=== PATIENT | male | born 1945 | race African-American/Black ===

== ENCOUNTER 2017-07-03 14:35 | Inpatient (IN) | payer MEDICARE, MEDICAID ==
[~2017-07-03] VITALS: Ht 172.7 cm; Wt 73.9 kg
--- NOTE | 2017-07-03 15:21 | NUR ---
CALLED NURSING SUP. FOR MS BED
--- NOTE | 2017-07-03 15:30 | NUR ---
MS 307-1
[2017-07-03] MEDS ORDERED: HYDROCODONE/APAP 5/325MG 1 EACH TABLET PO PRN (16:00)
[2017-07-03] MEDS ORDERED: Z GUARD REMEDY 2 OZ OINT TP PRN (16:00)
[2017-07-03] MEDS ORDERED: ZOLPIDEM TARTRATE 5 MG TABLET PO PRN (16:00)
[2017-07-03] MEDS ORDERED: ACETAMINOPHEN 325 MG TABLET PO PRN (16:00)
[2017-07-03] MEDS ORDERED: MAG HYDROX/AL HYDROX/SIMETH 30 ML UDC PO PRN (16:00)
[2017-07-03] MEDS ORDERED: ONDANSETRON HCL/PF 4 MG/2 ML VIAL IVP PRN (16:00)
[2017-07-03] MEDS ORDERED: MAGNESIUM HYDROXIDE 30 ML UDC PO PRN (16:00)
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
[2017-07-03 18:00] VITALS: BP 145/81
[2017-07-03] MEDS ORDERED: DEXTROSE 50%-WATER 50 ML DISP.SYRIN IV PRN (18:30)
--- NOTE | 2017-07-03 18:30 | NUR ---
ACCU-CHECK DONE.
[2017-07-03] MEDS: BLOOD SUGAR DIAGNOSTIC 1 EACH STRIP IN SCH ×2 (18:35→22:12)
[2017-07-03] MEDS: INSULIN ASPART HUMALOG/NOVOLOG 100 UNIT/ML CARTRIDGE SQ PRN ×2 (18:38→22:16)
--- NOTE | 2017-07-03 18:40 | NUR ---
HOME MED LIST TO BE ENDORSED TO [facility]ON[facility]. RN ER DID NOT DO IT.
--- NOTE | 2017-07-03 19:30 | NUR ---
RN OPENING NOTES PATIENT IS IN BED, ALERT AND ORIENTED X4. VS STABLE. NO C/O PAIN AT THIS TIME. NO SOB NOTED. RESPIRATIONS EVEN AND UNLABORED. BED IN LOW AND LOCKED POSITION. CALL LIGHT WITHIN EASY REACH. WILL CONTINUE TO MONITOR AND ASSESS DURING THE SHIFT.
[2017-07-03 20:00] VITALS: BP_SYST 114; BP_SYST 167; BP_DIAS 58; BP_DIAS 96
[2017-07-03] MEDS ORDERED: BLOOD SUGAR DIAGNOSTIC 1 EACH STRIP IN SCH (22:00)
[2017-07-04] MEDS ORDERED: DORZ10DR13 EACHEYE (00:37)
[2017-07-04] MEDS ORDERED: BRIM5DRO3 EACHEYE (00:37)
[2017-07-04] MEDS ORDERED: FOLI1TAB16 PO (00:37)
[2017-07-04] MEDS ORDERED: CLON0.1T PO (00:37)
[2017-07-04] MEDS ORDERED: ASCO500T9 PO (00:37)
[2017-07-04] MEDS ORDERED: CALC-838 PO (00:37)
[2017-07-04] MEDS ORDERED: CHOL200026 PO (00:37)
[2017-07-04] MEDS ORDERED: LISI2.5T2 PO (00:37)
[2017-07-04] MEDS ORDERED: MULT-331 PO (00:37)
[2017-07-04] MEDS ORDERED: FERR-58 PO (00:37)
[2017-07-04] MEDS ORDERED: ACET-868 PO (00:37)
[2017-07-04] MEDS ORDERED: ATOR10TA PO (00:37)
[2017-07-04] MEDS ORDERED: TAMS-12 PO (00:37)
[2017-07-04] MEDS ORDERED: LATA2.5D7 EACHEYE (00:37)
[2017-07-04] MEDS ORDERED: INSU100V7 SQ (00:43)
[2017-07-04] MEDS: BLOOD SUGAR DIAGNOSTIC 1 EACH STRIP IN SCH ×4 (06:31→21:44)
[2017-07-04] MEDS: INSULIN ASPART HUMALOG/NOVOLOG 100 UNIT/ML CARTRIDGE SQ PRN ×4 (06:34→21:46)
[2017-07-04 06:39] LABS: BASOPHILS % (AUTO) 0.4 % (0.0-2.0); EOSINOPHILS # (AUTO) 0.1 /CMM (0.0-0.7); EOSINOPHILS % (AUTO) 1.3 % (0.0-6.0); HEMATOCRIT 39 % (39-51); HEMOGLOBIN 13.1 g/dL (13.5-17.5); LYMPHOCYTES # (AUTO) 3.8 /CMM (0.8-4.8); LYMPHOCYTES % (AUTO) 52.9 % (20.0-44.0); MEAN CORPUSCULAR HEMOGLOBIN 32 PG (26.0-33.0); MEAN CORPUSCULAR HGB CONC 34 g/dl (31.0-36.0); MEAN CORPUSCULAR VOLUME 95 fL (80-96); MONOCYTES # (AUTO) 0.6 /CMM (0.1-1.30); MONOCYTES % (AUTO) 7.8 % (2.0-12.0); NEUTROPHILS # (AUTO) 2.7 /CMM (1.8-8.9); NEUTROPHILS % (AUTO) 37.6 % (43.0-81.0); PLATELET COUNT (AUTO) 98 /CMM (150-450); RDW COEFFICIENT OF VARIATION 12.9 (11.5-15.0); RED BLOOD CELL COUNT(AUTO) 4.13 MIL/uL (4.5-6.0); WHITE BLOOD COUNT (AUTO) 7.1 K/uL (4.3-11.0)
[2017-07-04 06:54] LABS: CALCIUM, SERUM 8.8 mg/dL (8.5-10.1); CARBON DIOXIDE 27 mmol/L (21-32); CHLORIDE 108 mmol/L (98-107); CREATININE 0.9 mg/dL (0.6-1.3); GLUCOSE 158 mg/dL (74-106); MAGNESIUM 1.9 mg/dL (1.8-2.4); PHOSPHORUS 2.9 mg/dL (2.5-4.9); POTASSIUM 4.2 mmol/L (3.5-5.1); SODIUM SERUM 142 mmol/L (136-145); UREA NITROGEN, BLOOD 17 mg/dL (7-18)
--- NOTE | 2017-07-04 07:06 | NUR ---
RN CLOSING NOTES PATIENT IS IN BED, ALERT AND ORIENTED X4. VS STABLE. NO C/O PAIN AT THIS TIME. NO SOB NOTED. RESPIRATIONS EVEN AND UNLABORED. ALL NEEDS ARE MET AND MEDICATIONS GIVEN PER MD ORDER. BED IN LOW AND LOCKED POSITION. CALL LIGHT WITHIN EASY REACH. WILL ENDORSE TO RN DAY SHIFT FOR CONTINUITY OF CARE.
[2017-07-04 07:11] LABS: CHOLESTEROL 131 mg/dL (<200); HDL CHOLESTEROL 60 mg/dL (40-60); LDL 61 mg/dL (0-99); TRIGLYCERIDES 50 mg/dL (30-150)
--- NOTE | 2017-07-04 07:30 | NUR ---
RN NOTES RECEIVED PATIENT AWAKE ALERT AND VERBALLY RESPONSIVE, ABLE TO MAKE NEEDS KNOWN. RESPIRATIONS EVEN AND UNLABORED, DENIES ANY PAIN OR DISCOMFORT AT THIS TIME. NO IV ACCESS AT THIS TIME MD AWARE, SAFETY MEASURES IN PLACE, WILL CONTINUE TO MONITOR
[2017-07-04 08:00] VITALS: BP 141/77
[2017-07-04 08:58] LABS: EOSINOPHILS % (MANUAL) 6 % (0-4); LYMPHOCYTES % (MANUAL) 37 % (16-48); MONOCYTES % (MANUAL) 6 % (0-11.0); NEUTROPHILS % (MANUAL) 49 (42-76); REACTIVE LYMPHOCYTES 2 % (0-0)
[2017-07-04 16:00] VITALS: BP 132/66
--- NOTE | 2017-07-04 19:13 | NUR ---
MS RN closing notes Patient Awake, alert and verbally responsive. Respirations are even and unlabored, not in any acute distress noted. Denies any pain at this time. Safety measures in place, all needs met and rendered. Will continue to follow the plan of care and endorse to next shift for continuity of care.
--- NOTE | 2017-07-04 19:48 | NUR ---
RN MS OPENING NOTE PT RECEIVED IN NO ACUTE DISTRESS AT THIS TIME. A/O X4 AWAKE WATCHING TV WITH NO SOB NOTED AT THIS TIME. NO IV ACCESS AT THIS TIME AND MD AWARE. COMFORT AND SAFETY MEASURES TO BE ENSURED DURING THE SHIFT. WILL CONTINUE TO MONITOR FOR ANY CHANGES DURING THE SHIFT. WILL GIVE MEDICATIONS ORDERED/NEEDED.
[2017-07-04 20:00] VITALS: BP 167/96
[2017-07-05] MEDS: BLOOD SUGAR DIAGNOSTIC 1 EACH STRIP IN SCH ×4 (06:32→22:37)
[2017-07-05] MEDS: INSULIN ASPART HUMALOG/NOVOLOG 100 UNIT/ML CARTRIDGE SQ PRN ×4 (06:33→22:42)
[2017-07-05 08:00] VITALS: BP 119/66
[2017-07-05 16:00] VITALS: BP 143/98
--- NOTE | 2017-07-05 18:56 | NUR ---
MS RN CLOSING NOTES: PATIENT IN BED, ALERT ,ORIENTED. NO SOB NOTED. NO ACUTE DISTRESS NOTED. BREATHING REGULAR EVEN AND UNLABORED. BED LOWEST POSITION, LOCKED. SIDERAILS UP X2. CALL LIGHT PLACED WITHIN REACH. NEEDS ATTENDED AND MET. DUE MEDS GIVEN, NO ASE NOTED. WILL CONTINUE TO MONITOR AND ENDORSE TO INCOMING SHIFT FOR CONTINUITY OF CARE.
--- NOTE | 2017-07-05 19:23 | NUR ---
MS RN NOTES ON BED A/O X4,NO SOB,ABLE TO VERBALIZED NEEDS,NO SALINE LOCK,DENIES DISCOMFORTS,CALL LIGHT IN REACH,NEEDS ANTICIPATED.
[2017-07-05 20:00] VITALS: BP 147/77
--- NOTE | 2017-07-05 22:47 | NUR ---
MS RN NOTES ACCU-CHECK BLOOD SUGAR CHECK 242,COVERED WITH HUMULIN ASPART 4 UNITS PER MILD SLIDING SCALE.
--- NOTE | 2017-07-06 05:45 | NUR ---
MS RN NOTES ACCU-CHECK BLOOD SUGAR CHECK 196,COVERED WITH HUMULIN ASPART 3 UNITS PER MILD SLIDING SCALE.
[2017-07-06] MEDS: BLOOD SUGAR DIAGNOSTIC 1 EACH STRIP IN SCH ×2 (06:01→11:54)
[2017-07-06] MEDS: INSULIN ASPART HUMALOG/NOVOLOG 100 UNIT/ML CARTRIDGE SQ PRN ×2 (06:04→12:02)
--- NOTE | 2017-07-06 06:32 | NUR ---
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
--- NOTE | 2017-07-06 07:15 | NUR ---
RN INITIAL NOTES PATIENT RECEIVED ASLEEP IN BED, EASILY AROUSABLE, ALERT AND ORIENTED X 4, VERBALLY RESPONSIVE, WITH NO C/O PAIN, NO SYMPTOMS OF ACUTE DISTRESS. PLACED CALL LIGHT WITHIN EASY REACH. WILL CONTINUE TO MONITOR.
[2017-07-06 08:00] VITALS: BP 149/78
--- NOTE | 2017-07-06 10:50 | NUR ---
D/C ORDER RECEIVED NEW ORDER FROM DR. ANGIE CAR TO DISCHARGE PATIENT BACK TO SNF AND TO CONTINUE ALL HOME MEDICATION. ALL ORDERS NOTED AND CARRIED OUT. PATIENT MADE AWARE AND AGREES WITH PLAN OF CARE.
--- NOTE | 2017-07-06 11:19 | NUR ---
D/C INSTRUCTIONS PATIENT UP IN BED, AWAKE, ALERT AND ORIENTED X 4, VERBALLY RESPONSIVE, NOTED WITH NO SOB, BREATHING EVEN AND UNLABORED, WITH NO C/O PAIN, NO SIGNS AND SYMPTOMS OF ACUTE DISTRESS AT THIS TIME. DISCHARGE INSTRUCTIONS GIVEN TO PATIENT AND PT VERBALIZED UNDERSTANDING. INVENTORY DONE AND ALL BELONGINGS COMPLETE. PER PATIENT, HIS DAUGHTER BEKAH BROUGHT HOME HIS CLOTHING. 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 ALL PATIENT'S NEEDS ATTENDED TO. CALL LIGHT PLACED WITHIN EASY REACH. WILL CONTINUE TO MONITOR.
--- NOTE | 2017-07-06 12:10 | NUR ---
REPORT GIVEN CALLED [facility] TO GIVE REPORT, SPOKE TO MARIANO DAILEY. INFORMED ASIM PATIENT WILL BE PICKED UP AT 2PM.
--- NOTE | 2017-07-06 14:30 | NUR ---
RN NOTE PATIENT UP IN BED, ALERT AND ORIENTED X 3, NO SOB, BREATHING EVEN AND UNLABORED, NO C/O PAIN AND NO S/S OF ACUTE DISTRESS, WITH STABLE VITAL SIGNS. PICKED UP BY TRANSPORTATION PERSONNEL, LEFT FACILITY VIA GURNEY SAFELY WITH ALL BELONGINGS COMPLETE.
== END 2017-07-06 14:30 | DRG 917 ==
LOC: ER 14:37 → MED 16:41
DX: T59.811A Toxic effect of smoke, accidental (unintentional), initial encounter (principal); J96.01 Acute respiratory failure with hypoxia; F03.90 Unspecified dementia, unspecified severity, without behavioral disturbance, psychotic disturbance, mood disturbance, and anxiety; J70.5 Respiratory conditions due to smoke inhalation; E11.65 Type 2 diabetes mellitus with hyperglycemia; Y92.129 Unspecified place in nursing home as the place of occurrence of the external cause; Z86.73 Personal history of transient ischemic attack (TIA), and cerebral infarction without residual deficits; Z87.820 Personal history of traumatic brain injury; Z79.4 Long term (current) use of insulin; Z79.899 Other long term (current) drug therapy
CPT/HCPCS: 36415; 80048-TC; 80061-TC; 82962-TC; 83735-TC; 84100-TC; 85025-TC; 87081-TC; A4606; J1815; Z7610